=== PATIENT | female | born 1960 | race American Indian/Alaskan Native ===

== ENCOUNTER 2016-09-28 14:30 | Emergency (ER) | payer BC, OTHER ==
[2016-09-28 14:51] VITALS: BP 119/75; PULSE 59; RESP 18; TEMP 97.9; O2SAT 100
[2016-09-28] MEDS ORDERED: Bacitracin 500 Units/gm Oint Foilpak UD TOP ONE (14:53)
--- NOTE | 2016-09-28 14:56 | C.PDOC ---
History Of Present Illness 56 yr old female presents to the ER stating she bite into a hot, steaming hard boil egg and a poof of steam hit the upper inside lip. Patient reports of mild to moderate pain and inflammation. Denies mouth swelling, tongue swelling or vomiting. Time Seen by Provider: 09/28/16 14:52 Chief Complaint (Nursing): Abnormal Skin Integrity History Per: Patient History/Exam Limitations: no limitations Onset/Duration Of Symptoms: Sudden Onset (H[employer]) Past Medical History Reviewed: Historical Data, Nursing Documentation, Vital Signs Vital Signs: Last Vital Signs Temp 97.9 F 09/28/16 14:41 Pulse 59 L 09/28/16 14:41 Resp 18 09/28/16 14:41 BP 119/75 09/28/16 14:41 Pulse Ox 100 09/28/16 14:55 Family History: States: No Known Family Hx - Social History Hx Alcohol Use: No Hx Substance Use: No - Immunization History Hx Tetanus Toxoid Vaccination: No Hx Influenza Vaccination: No Hx Pneumococcal Vaccination: No Review Of Systems Except As Marked, All Systems Reviewed And Found Negative. ENT: Positive for: Other ((+) Mild to moderate pain to upper inside lip). Negative for: Mouth Swelling Gastrointestinal: Negative for: Vomiting Physical Exam - Physical Exam Appears: Non-toxic, No Acute Distress Skin: Warm, Dry, No Rash Head: Atraumatic, Normacephalic Oral Mucosa: Moist, Other ((+) Mild erythema and tenderness, consistent with 1st degree burn to inside upper lip. ) Throat: Normal, No Erythema, No Exudate, No Drooling, No Mass Neurological/Psych: Oriented x3, Normal Speech, Normal Motor ED Course And Treatment O2 Sat by Pulse Oximetry: 100 (RA) Pulse Ox Interpretation: Normal Medical Decision Making Medical Decision Making: upper lip steam burn from hot hard cooked egg no s/s of infection yet. prophylactic moiturizers Disposition Doctor Will See Patient In The: Office Counseled Patient/Family Regarding: Studies Performed, Diagnosis - Disposition Referrals: [facility] [Outside] [facility] [Outside] Disposition: HOME/ ROUTINE Disposition Time: 14:55 Condition: GOOD Additional Instructions: aquaphor or bacitracin ointment to the lips to help prevent infection Instructions: Superficial Burn (ED), Acute Wound Care (ED) - Clinical Impression Clinical Impression: Burn of lip - Scribe Statement The provider has reviewed the documentation as recorded by the Scribe Ramandeep Rico Provider Attestation: All medical record entries made by the Scribe were at my direction and personally dictated by me. I have reviewed the chart and agree that the record accurately reflects my personal performance of the history, physical exam, medical decision making, and the department course for this patient. I have also personally directed, reviewed, and agree with the discharge instructions and disposition.
[2016-09-28] MEDS ORDERED: Bacitracin 500 Units/gm Oint Foilpak UD ONE (14:57)
== END 2016-09-28 15:03 | disposition home or self-care (01) ==
LOC: C.ER 14:30
DX: T20.12XA Burn of first degree of lip(s), initial encounter (principal); X13.1XXA Other contact with steam and other hot vapors, initial encounter; Y93.89 Activity, other specified; Y92.000 Kitchen of unspecified non-institutional (private) residence as the place of occurrence of the external cause

== ENCOUNTER 2018-04-14 12:03 | Outpatient (CLI) | payer BC | END 2018-04-14 12:04 | disposition home or self-care (01) | LOC: C.LAB 12:03 | DX: Z00.00 Encounter for general adult medical examination without abnormal findings (principal); Z68.20 Body mass index [BMI] 20.0-20.9, adult ==